=== PATIENT | female | born 2000 | race Caucasian/White ===

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

== ENCOUNTER 2019-01-04 10:08 | Outpatient (RCR) | payer MEDICAID, SELFPAY | END 2019-01-04 23:59 | LOC: NS 10:08 | PROVIDERS: Family Provider Pediatrics; PCP Pediatrics; Visit Provider Pediatrics | DX: E66.01 Morbid (severe) obesity due to excess calories (principal); Z71.3 Dietary counseling and surveillance | CPT/HCPCS: 97803 ==

== ENCOUNTER 2019-02-01 10:00 | Outpatient (RCR) | payer MEDICAID, SELFPAY | END 2019-02-01 23:59 | disposition home or self-care (01) | LOC: NS 10:00 | PROVIDERS: Family Provider Pediatrics; PCP Pediatrics; Visit Provider Pediatrics | DX: Z71.3 Dietary counseling and surveillance (principal); E66.01 Morbid (severe) obesity due to excess calories | CPT/HCPCS: 97803 ==

== ENCOUNTER 2020-07-26 20:08 | Emergency (ER) | payer MEDICAID, SELFPAY ==
[2020-07-26 20:09] VITALS: BP 141/97; PULSE 86; RESP 16; TEMP 35.8; O2SAT 98; BMI 52.9
--- NOTE | 2020-07-26 20:25 | EKG12_ITS ---
Test Reason : CP Blood Pressure : / mmHG Vent. Rate : 079 BPM Atrial Rate : 079 BPM P-R Int : 158 ms QRS Dur : 102 ms QT Int : 396 ms P-R-T Axes : 044 006 037 degrees QTc Int : 454 ms Normal sinus rhythm Normal ECG Confirmed by STEPHANIA SCHAFER, GLADIS ([id number]), staff editor KAMLESH LEOS ([id number]) on 07/29/2020 11:09:38 AM Referred By: VAMSI Confirmed By:GLADIS CAT MD
--- NOTE | 2020-07-26 20:25 | RAD_ITS ---
STUDY: X-RAY CHEST REASON FOR EXAM: Female, 19 years old. CHEST PAIN AND SOB, WORSE ON DEEP INSPIRATION TECHNIQUE: Single frontal view of the chest. COMPARISON: None. FINDINGS: The lungs are clear and expanded. There is no demonstrated pleural abnormality. Normal size heart. Normal mediastinum and sudeep. Normal visualized pulmonary arteries. Normal visualized aortic arch and descending thoracic aorta. Normal visualized thoracic spine. Normal visualized ribs, clavicles, and shoulders. There is no demonstrated abnormality of the visualized soft tissue structures of the upper abdomen. RAD/Chest 1 View (Portable) IMPRESSION: Normal x-ray examination of the chest. Electronically Signed: Felipe Minor MD at 21:01 EST , Service support ,
--- NOTE | 2020-07-26 20:26 | ED.VISSUMM ---
- ER Visit Summary Date of Service: 07/26/20 Chief Complaint: Chest pain History of Present Illness: The patient is a 19 F who presents with chest pain that began today. Patient states her pain waxes and wanes. Patient describes it as sharp and stabbing. Patient states it is over the substernal area and radiates into her back. Patient states it is worse with deep breathing. Patient states nothing seems to help with it. Patient states she does feel short of breath with it. Patient denies any nausea or vomiting. Patient denies any fevers or chills. Patient denies any cough. Patient denies any lightheadedness or dizziness. Patient denies any diaphoresis. Patient denies any cardiac or PE risk factors. Physical Examination: Vital signs are stable. Patient is afebrile. Patient is in no acute distress. Oral mucosa is pink and moist. Neck is supple. Trachea is midline. There is no JVD. Heart was regular rate and rhythm. Lungs are clear and equal bilaterally. Abdomen is soft. Bowel sounds are normal. There is no tenderness. Cranial nerves II through XII are intact. There are no focal motor or sensory deficits noted. Tremors are intact. There is no calf tenderness or edema. Test Results: EKG was obtained. On my interpretation, there is a normal sinus rhythm with a rate of 79. There are no acute ST or T wave changes. Portable 1 view chest x-ray was obtained. On my interpretation, lung landa are clear. There is normal cardiac silhouette. Bony thorax is normal. There is no acute process noted. Radiologist also interpreted the x-ray and agrees. CBC, basic metabolic profile, D-dimer, and troponin were obtained and were all within normal limits. Emergency Department Course and Treatment: Patient is feeling better on reevaluation. Patient has a HEART score of 0. Patient was advised that this is low risk for acute cardiac event. Patient was instructed to follow-up with her primary care physician in 5 to 7 days. Patient was given a prescription for ibuprofen. Patient was instructed to return if worse in any way. Patient understood and was agreeable with the plan. All questions were answered. Disposition: Discharge home Impression: 1. Chest pain of uncertain etiology This note was generated with Loxo On[employer] software. It may contain incorrect words, spelling, and punctuation that were not noted in review of the chart prior to signing ED Disposition - Plan for ED Patient: Disposition: Home or Assisted Living Diagnosis: Chest pain of uncertain etiology Instructions: ED Chest Pain, Uncertain Cause Referrals: Haroon Regan MD [Primary Care Provider] - 5-7 Days
[2020-07-26] MEDS: Ibuprofen 400 MG Tablet 800 MG PO (20:46)
[2020-07-26 20:47] LABS: Absolute Lymphocyte Count 1.32 X10^3/uL (0.83-4.51); Absolute Neutrophil Count 6.5 X10^3/uL (2.0-7.7); Basophil# 0.02 X10^3/uL; Basophil% 0.2 % (0-1); Eosinophil# 0.07 X10^3/uL; Eosinophils% 0.8 % (0-5); Hematocrit 38.2 % (37-47); Hemoglobin 12.1 g/dL (12.0-15.0); Lymphocyte # 1.32 X10^3/ul (4.0); Lymphocyte % 15.5 % (19-41); Mean Corp Hgb Conc 31.7 g/dL (32-36); Mean Corpuscular Hgb 26.1 pg (27.0-32.0); Mean Corpuscular Volume 82.5 fL (81-99); Mean Platelet Vol. 10.2 fl (6.2-12.0); Monocyte# 0.53 X10^3/uL; Monocyte% 6.2 % (0-10); NRBC Flagged by Analyzer 0 % (0-5); Neutrophil # 6.54 X10^3/uL (2.7-7.7); Neutrophil % 76.9 % (47-70); Platelet Count 331 K/mm3 (150-450); RBC Distribution Width CV 13.5 % (11.6-14.6); RBC Distribution Width SD 40.4 fl (35.1-43.9); Red Blood Count 4.63 M/mm3 (4.2-5.4); White Blood Count 8.5 K/mm3 (4.4-11.0)
[2020-07-26 20:56] LABS: D-Dimer Quantitative (DVT/PE) 0.42 FEU/ug/m (0.27-0.49)
[2020-07-26 21:02] LABS: Anion Gap 5 (5-15); BUN 16 mg/dL (7-18); BUN/Creat Ratio 18.5 RATIO (10-20); Calcium,Total 8.5 mg/dL (8.5-10.1); Chloride 109 mmol/L (98-107); Creatinine, Serum 0.87 mg/dL (0.55-1.02); EST Glomerular Filtration Rate 88 mL/min (>60); Est Glom Filt Rate - Afr Amer 106 mL/min (>60); Estimated Creatinine Clearance 92.82 ml/min; Glucose 85 mg/dL (74-106); Potassium 3.9 mmol/L (3.5-5.1); Sodium Level 140 mmol/L (136-145)
[2020-07-26 21:58] VITALS: BP 131/85; PULSE 72; RESP 18; O2SAT 98
== END 2020-07-26 21:59 | disposition home or self-care (01) ==
PROVIDERS: Emergency Provider Emergency Medicine; PCP Pediatrics
DX: R07.89 Other chest pain (principal); R06.00 Dyspnea, unspecified; M54.9 Dorsalgia, unspecified; E66.9 Obesity, unspecified; F32.9 Major depressive disorder, single episode, unspecified; Z79.899 Other long term (current) drug therapy
CPT/HCPCS: 71045; 80048; 84484; 85025; 85379; 93005; 99285

== ENCOUNTER 2022-03-07 10:30 | Outpatient (RCR) | payer OTHER, MEDICAID, SELFPAY ==
--- NOTE | 2022-01-25 11:06 | HP.PTEVAL ---
Patient's Visit Information ELENA HORN is a 21 year old F referred to Physical Therapy by TODD BERRIOS with a diagnosis of Nondisplaced fracture of lateral malleolus of left fibula. Date of Evaluation: 01/25/22 Physical Therapist: Benjy Swanson DPT - Visit Plan Frequency: 2x /Week Duration: 4-6 Weeks Plan: Start with Calf stretching, 4 way ankle strengthening. Progressing to functional strengthening and strengthening for work related acivities. - Subjective Pt. is here today her initial evaluation with diagnosis of Nondisplaced fracture of lateral malleolus of left fibula, initial encounter for closed fracture. Pt. reports hurting her ankle in July when she was at work and slipped. Pt. reports doing much better than she originally did. She reports overall not much pain any more, but does get her every once in a while if she takes a bad step. She is not back to work yet, no RTD know by patient. She is pleased with how she is progressing. 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 She is sleeping well, no N/T noted. Pt. is hopeful to get back to all recreational and work activities without limitations. - Pain L ankle Pain Intensity (Out of 10): 1 Pain Intensity Range: 0, 2 - Objective POSTURE: Pt. has good posture in stance. Normal ankle positioning noted. PALPATION: Pt. had mild tenderness at ATFL, but no pain with rest of palpation. NEURO: normal throughout BLEs. Pt. is able to rise on heels and toes without issues. ROM: L ankle: AROM: 8deg, PF 34deg, INV 10deg, EVR 8deg. PROM: DF 12deg, PF 38deg, INV 14deg, EVR 14deg. Pt. has normal knee and hip ROM. She does have sight calf musculature and L HS. MMT: RLE: 5/5 throughout. LLE: ankle DF 4+/5, PF 5/5, INV 4+/5, EVR 4+/5. Knee: ext 5/5, flexion 5/5; hip: flexion 4+/5, abd 4+/5, ext 4+/5. GAIT: Pt. has fairly normal gait pattern. She reports no increase in symptoms throughout cycle. She does have increased lateral lean during L stance phase to L side. STAIRS: Ascending with 1 HR with normal pattern, slight increase in functional weakness during L loaded phase. Slight early heel off with descending during L loaded phase. - Balance/Special Test Scores Lower Extremity Functional Score: 60 - Goals Goal 1:: LTG: Pt. to be I with HEP for L ankle strengthening and ROM. Goal Time Frame: 4-6 Weeks Goal 2:: STG: Pt. to be able to ambulate 1 mile without increase in symptoms. Goal Time Frame: 2-4 Weeks Goal 3:: LTG: Pt. to be able to stand for 3-4 hours allowing for increased tolerance to work activities. Goal Time Frame: 4-6 Weeks Goal 4:: STG: Pt. to have full symmetrical ROM of L ankle allowing for increased tolerance to functional mobility. Goal Time Frame: 2-4 Weeks Goal 5:: LTG: Pt. to have full strength 5/5 of LLE allowing good tolerance to all work activities. Goal Time Frame: 4-6 Weeks - Rehabilitation Potential Physical Therapy Diagnosis: Pt. has signs and symptoms consistent with Nondisplaced fracture of lateral malleolus of left fibula. Pt. is overall doing pretty well. She has been off work for a while now and some slight weakness in her LLE as well as some slight hypomobility of L ankle. She would benefit from PT to work on LLE strengthening and graded exercises progressing back to all previous levels of work and recreational activities. Rehabilitation Potential: Excellent - Anticipated Interventions Patient/Client Instruction: Educate patient on: Condition, Plan of Care, Risk Factors, Benefits of Fitness Program For the Purpose of:: To facilitate caregiver knowledge, To improve self management, To prevent re-injury, To improve ability to perform tasks related to life management, To improve tolerance to ADL's Therapeutic Exercise to Include: Strength training, Power training, Endurance training, Balance training, Body mechanics, Postural training, Flexibilty training, Gait and locomotor training, Passive ROM, Active ROM For the Purpose of:: To decrease pain, To increase ROM, To improve nutrient delivery to tissue, To increase oxygenation perfusion, To improve muscle performance and motor function, To improve ability to perform ADL's, To increase tolerance to activity/condition/position, To improve gait and locomotor functions, To improve health of tissue, To decrease soft tissue restriction, To increase flexibility/ROM Thank you for the opportunity to evaluate your patient. For Medicare and Medicare HMO plans, please review the plan of care and approve it. It will need to be FAXED BACK to us at [phone] for Medicare purposes. For Medicare only, by signing this I certify the plan of care. Please let me know if there are questions or concerns regarding this plan of care. Physician Signature: Date:
--- NOTE | 2022-03-07 10:59 | HP.PTDCSUM ---
It has been my pleasure to treat ELENA HORN referred by TODD BERRIOS, with the diagnosis of Nondisplaced fracture of lateral malleolus of left fibula for a total of 10 visit(s). Discharge Date: 03/07/22 Please see the following information for a summary of their discharge status. Subjective: Pt. reports no pain today. She reports doing well over all. She reports being able to complete all ADLs, and her foot/ankle is not effecting her in her activity any more. return to doctor on 03/16/22. She is returning to school in a few weeks. Pt. reports being 90% better overall. A little bit of an issues with carrying objects down stairs, but other kim no issues. L ankle Pain Intensity (Out of 10): 0 % Improvement: 90 Objective/Function: ROM: L ankle DF 14deg, PF 48deg, INV 20deg, EVR 18deg. active motion. MMT: 5/5 throughout L ankle and knee musculature. GAIT: Pt. has normal gait pattern. Slight increase in lateral sway with her hips, but is most likely baseline. Pt. reports no pain with walking. No antalgic pattern noted. STAIRS: Pt. is able to complete with normal reciprocal pattern without use of HR without pain. No early heel off with descending. 6 MWT: 1401 feet no pain. She reports being able to walk upto ~1 mile without issues, but has has not formally measured out. She is standing and doing all of her activities without issues or limitations at this point in time. No pain noted with palpation. PT. is HEP compliant. Goal 1:: LTG: Pt. to be I with HEP for L ankle strengthening and ROM. Goal Progress: Goal Met Goal 2:: STG: Pt. to be able to ambulate 1 mile without increase in symptoms. Goal Progress: Goal Met Goal 3:: LTG: Pt. to be able to stand for 3-4 hours allowing for increased tolerance to work activities. Goal Progress: Goal Met Goal 4:: STG: Pt. to have full symmetrical ROM of L ankle allowing for increased tolerance to functional mobility. Goal Progress: Goal Met Goal 5:: LTG: Pt. to have full strength 5/5 of LLE allowing good tolerance to all work activities. Goal Progress: Goal Met Plan: PT to be DC to HEP at this point in time. She is to follow up with physician in ~10 days. Discharge Comments: Pt. was treated with strengthening, gait, proprioception exercises in PT. She has progressed very well and reports being close to normal when it comes to her L ankle/foot. She has progressed as expected and will be DC from PT at this point in time. If there are questions or concerns regarding this patient's physical therapy, please feel free to call me at [phone]. Thank you for the referral of this patient. Sincerely, Benjy Swanson, DPT Balance/Gait/Functional tests - Balance/Special Test Scores Lower Extremity Functional Score: 77
== END 2022-03-07 19:00 | disposition home or self-care (01) ==
LOC: PT 10:30
PROVIDERS: PCP Pediatrics
DX: S82.65XD Nondisplaced fracture of lateral malleolus of left fibula, subsequent encounter for closed fracture with routine healing (principal); X58.XXXD Exposure to other specified factors, subsequent encounter
CPT/HCPCS: 97110; 97161; 97164

== ENCOUNTER → 2024-03-25 | Outpatient (CLI) | payer MEDICAID, SELFPAY ==
[2024-03-27 20:08] LABS: QNTFERON TB Mitogen Value > 10.00 IU/mL (.); QNTFERON TB Nil Value 0 IU/mL (.); QNTFERON TB1+ Ag Value 0 IU/mL (.); QNTFERON TB2+ Ag Value 0 IU/mL (.); QNTIFERON TB Positive Criteria Negative (Negative)
== END | disposition home or self-care (01) ==
LOC: MTLAB 12:41
PROVIDERS: PCP Pediatrics; Referring Provider Physician Assistant; Visit Provider Physician Assistant
DX: Z02.1 Encounter for pre-employment examination (principal)
CPT/HCPCS: 36415; 86480

== ENCOUNTER 2024-07-16 17:40 | Emergency (ER) | payer MEDICAID, SELFPAY ==
[2024-07-16 17:43] VITALS: BP 138/82; PULSE 68; RESP 18; TEMP 36.1; O2SAT 98; BMI 57.6
--- NOTE | 2024-07-16 18:47 | CT_ITS ---
STUDY: CT CERVICAL SPINE WITHOUT CONTRAST REASON FOR EXAM: Female, 23 years old. neck pain RADIATION DOSAGE (If Supplied By Facility): CTDIvol = ( 30.32 ) mGy, DLP = ( 581.11 ) mGycm TECHNIQUE: High resolution transaxial imaging was performed without contrast material. Sagittal and coronal images were reconstructed. Individualized dose optimization techniques were used for this CT. The protocol utilizes one or more of the following dose reduction techniques: automated exposure control, adjustment of mA and/or kV according to patient size,and/or use of iterative reconstruction technique. COMPARISON: None FINDINGS: Normal craniovertebral junction. Normal anterior atlantoaxial articulation. Normal odontoid process. Normal cervical lordosis. Normal vertebral bodies and posterior osseous elements. C2-3: Normal endplates. Normal disc height and morphology. Normal central canal and intervertebral neuroforamina. C3-4: Normal endplates. Normal disc height and morphology. Normal central canal and intervertebral neuroforamina. C4-5: Normal endplates. Normal disc height and morphology. Normal central canal and intervertebral neuroforamina. C5-6: Normal endplates. Normal disc height and morphology. Normal central canal and intervertebral neuroforamina. C6-7: Normal endplates. Normal disc height and morphology. Normal central canal and intervertebral neuroforamina. C7-T1: Normal endplates. Normal disc height and morphology. Normal central canal and intervertebral neuroforamina. Normal visualized soft tissue structures. CT/Spine Cervical without Contras IMPRESSION: Normal unenhanced CT examination of the cervical spine. Electronically Signed: Felipe Minor MD at 21:21 EST ,
--- NOTE | 2024-07-16 18:47 | EKG12_ITS ---
Test Reason : DYSRHYTHMIA Blood Pressure : */* mmHG Vent. Rate : 62 BPM Atrial Rate : 62 BPM P-R Int : 158 ms QRS Dur : 102 ms QT Int : 420 ms P-R-T Axes : 31 6 24 degrees QTcB Int : 426 ms Normal sinus rhythm Cannot rule out Anterior infarct , age undetermined Abnormal ECG Confirmed by FCO SCHAFER, ROXANNE ([id number]), editor producer AMELIA ZAIDI ([id number]) on 07/17/2024 11:38:04 AM Referred By: Confirmed By: ROXANNE EAGLE MD
--- NOTE | 2024-07-16 18:47 | CT_ITS ---
STUDY: CT THORACIC SPINE WITHOUT CONTRAST REASON FOR EXAM: Female, 23 years old. back pain RADIATION DOSAGE (If Supplied By Facility): CTDIvol = ( 55.04 ) mGy, DLP = ( 2039.32 ) mGycm TECHNIQUE: The patient was scanned in a multi detector CT scanner. High resolution imaging was performed. Images were obtained from cervical to lumbar spine. Sagittal and coronal images were reconstructed. Individualized dose optimization techniques were used for this CT. The protocol utilizes one or more of the following dose reduction techniques: automated exposure control, adjustment of mA and/or kV according to patient size,and/or use of iterative reconstruction technique. COMPARISON: None. FINDINGS: Normal visualized cervical spine. Multiple intraosseous hemangiomas. Normal kyphosis of the thoracic spine. There is no substantial scoliosis. Normal thoracic vertebrae and endplates. Normal disc spaces heights. The soft tissue structures are unremarkable. CT/Spine Thoracic without Contras IMPRESSION: No fracture. 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 There is risk of pathologic fracture. Electronically Signed: Felipe Minor MD at 21:28 EST ,
--- NOTE | 2024-07-16 18:48 | EDS_ITS ---
HPI History of Present Illness Chief Complaint: Other, Pain/Inj Detail of Chief Complaint: Neck and back pain and near syncope Informant: patient Narrative Narrative: Patient presents the emergency department with an odd discomfort lower neck posteriorly and upper back that then sends a wave of nausea through her and then she feels like she can pass out. Patient states has been going on for about 3 days. She has not actually passed out. She does have remote history of vasovagal syncope. She denies recent illness. She denies chest pain. She denies shortness of breath. Today she was at work and felt like she might pass out became very concerned. They went to urgent care and was referred to the emergency department. [facility] Medical History (Updated 07/16/24 @ 21:[address] Rosalia Dawson, DO) Anxiety Depressed Home Medications ?Medication ?Instructions ?Recorded ?Last Taken ?Type bupropion HCl 300 mg 24 hr tablet, 300 mg PO DAILY 07/26/20 Unknown History extended release fluoxetine 20 mg capsule 80 mg PO DAILY 07/26/20 Unknown History ondansetron 4 mg disintegrating 4 mg PO Q8H PRN PRN Nausea #10 tabs 07/16/24 Unknown Rx tablet Allergy/AdvReac Type Severity Reaction Status Date / Time No Known Allergies Allergy Verified 07/16/24 17:43 Social History Smoking Status: Never smoker ROS ROS ED Review of Systems ROS Unobtainable: other Constitutional Constitutional ED: Reports lethargy; Denies chills, fever(s), sweats or weight loss Eyes Eyes: Denies blurry vision, change in vision or diplopia ENT ENT ED: Denies rhinorrhea or sore throat Cardiovascular Cardiovascular: Denies chest pain, orthopnea or racing heartbeat Respiratory/Chest Respiratory/Chest: Denies cough, dyspnea, dyspnea on exertion, orthopnea or sputum Gastrointestinal Gastrointestinal: Reports nausea; Denies abdominal pain, diarrhea or vomiting Genitourinary Genitourinary ED: Denies dysuria, hematuria or urinary frequency Musculoskeletal Musculoskeletal: Reports back pain and neck pain; Denies arthralgias or myalgias Integumentary Denies abscess, Abrasions or rash Neurologic Neurologic: Reports other Details: Near syncope ; Denies headache(s) or weakness Psychiatric Psychiatric: Denies anxiety, depression or suicidal thoughts Endocrine Endocrinology: Denies polydipsia, polyphagia or polyuria Hematologic/Lymphatic Hematologic/Lymphatic: Denies easy bleeding, easy bruising or lymphadenopathy Allergic/Immunologic Allergic/Immunologic ED: Denies mouth swelling, tongue swelling or urticaria EXAM Physical Exam Const Vital Signs: 07/16/24 17:43 07/16/24 19:02 07/16/24 19:42 Temperature 96.9 F L Temperature Source Temporal Pulse Rate 68 70 Respiratory Rate 18 16 Respiratory Effort Normal Respiratory Pattern Normal Blood Pressure 138/82 H 132/98 H Blood Pressure Mean 100 109 Pulse Ox 98 95 Oxygen Delivery Method Room Air Positive well nourished and well developed General Appearance ED: well developed and NAD HEENT Reports TM's clear and moist mucous membranes normocephalic and atraumatic; Negative for trauma or tenderness Tympanic Membrane ED: Yes TM's clear Eyes PERRL and EOMs intact bilaterally General Eye ED: Negative for pale conjunctiva or scleral icterus Neck no lymphadenopathy, supple and no JVD General: Negative for tenderness Chest Wall inspection of chest normal and palpation of chest normal Chest: Negative for tenderness Resp normal respiratory effort and clear to auscultation bilaterally Effort and Inspection: Negative for respiratory distress or pain with movement Auscultation: Negative for rhonchi, wheezes or diminished lung sounds Cardio regular rate, regular rhythm, S1 normal heart sound, S2 normal heart sound and no murmurs Peripheral Pulses: pulses 2+ throughout GI normal to inspection, nondistended, normoactive bowel sounds, soft to palpation, non-tender, non-distended and no masses Back/Spine no CVA tenderness and no thoracic nor lumbar tenderness Extremity normal to inspection General Extremety ED: Negative for edema General Extremity: Negative for edema Neuro oriented x3, CN's II-XII intact bilaterally, no sensory deficits noted and gait normal Sensorium / Orientation: awake, alert, oriented to person, oriented to place and oriented to time Motor Exam: strength 5/5 throughout and strength abnormal Psych mental status grossly normal Skin no rashes or lesions noted and no wounds MDM MDM MDM Narrative Medical decision making narrative: Patient presents to the emergency department with concern for near syncopal type feelings and some unusual discomfort in her upper back and base of her neck. She feels like that is the source of this feeling or sensation neck and then causes nausea makes her feel like she is in a pass out. Patient's had no falls or injuries. She denies recent illness. IV line established. EKG obtained showed sinus rhythm with ventricular rate of 62 bpm with no acute ST segment changes. CBC with differential obtained showed a white count of 7.6 with hemoglobin 12.2 and platelet count of 316. Chemistries unremarkable. Patient had a CT scan of the cervical spine that was normal. 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 There is risk of pathologic fracture. These findings are incidental. I do not feel they have any bearing on patient's symptomatology. I will refer them to a back specialist for follow-up. I will write patient a prescription for some Zofran. Advised to push fluids. Follow-up with primary care physician within next 5 to 7 days Lab Data Attestation: I reviewed the patient's lab results. Labs: Laboratory Results - last 24 hr 07/16/24 18:52 WBC 7.6 RBC 4.59 Hgb 12.2 Hct 38.1 MCV 83.0 MCH 26.6 L MCHC 32.0 RDW Std Deviation 39.8 RDW Coeff of Luiz 13.2 Plt Count 316 MPV 10.1 Immature Gran % (Auto) 0.300 Neut % (Auto) 73.8 H Lymph % (Auto) 18.8 L [place] % (Auto) 5.8 Eos % (Auto) 0.9 Baso % (Auto) 0.4 Absolute Neuts (auto) 5.6 Absolute Lymphs (auto) 1.43 Nucleated RBC % 0 Sodium 140 Potassium 4.0 Chloride 110 H Carbon Dioxide 28.0 Anion Gap 3 L BUN 18 Creatinine 0.82 Estim Creat Clear Calc 163.62 Est GFR (MDRD) Af Amer 109 Est GFR (MDRD) Non-Af 90 BUN/Creatinine Ratio 21.8 H Glucose 89 Calcium 9.0 Radiography Diagnostic Testing: Clinical Impression(s) from Imaging Studies Cervical Spine CT 07/16/24 18:47 IMPRESSION: Normal unenhanced CT examination of the cervical spine. Electronically Signed: Felipe Minor MD at 21:21 EST , Thoracic Spine CT 07/16/24 18:47 IMPRESSION: No fracture. 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 There is risk of pathologic fracture. Electronically Signed: Felipe Minor MD at 21:28 EST , EKG Initial EKG: Attestation: I personally reviewed and interpreted this EKG as follows: Comments: Sinus rhythm with ventricular rate of 62 bpm with no acute ST segment changes Discharge Plan Triage Chief Complaint: Other, Pain/Inj Other Complaint: Nausea/Vomiting ED Provider: Rosalia Dawson Dx/Rx/DC Orders Clinical Impression: Back pain, Near syncope, Nausea Instructions: ED Back Pain (Acute or Chronic), ED Near-Fainting, Uncertain Cause Prescriptions: New ondansetron 4 mg tablet,disintegrating 4 mg PO Q8H PRN PRN (Reason: Nausea) Qty: 10 0RF No Action fluoxetine 20 MG capsule 80 mg PO DAILY bupropion HCl 300 MG tablet extended release 24 hr 300 mg PO DAILY Primary Care Provider: Daniele Solo Referrals: Daniele Solo MD [Primary Care Provider] - 5-7 Days Print Language: Korean Disposition Disposition: Home, Self Care
[2024-07-16 19:05] LABS: Absolute Lymphocyte Count 1.43 X10^3/uL (0.83-4.51); Absolute Neutrophil Count 5.6 X10^3/uL (2.0-7.7); Basophil# 0.03 X10^3/uL; Basophil% 0.4 % (0-1); Eosinophil# 0.07 X10^3/uL; Eosinophils% 0.9 % (0-5); Hematocrit 38.1 % (37-47); Hemoglobin 12.2 g/dL (12.0-15.0); Lymphocyte # 1.43 X10^3/ul (0.83-4.51); Lymphocyte % 18.8 % (19-41); Mean Corpuscular Hgb 26.6 pg (27.0-32.0); Mean Platelet Vol. 10.1 fl (6.2-12.0); Monocyte# 0.44 X10^3/uL; Monocyte% 5.8 % (0-10); NRBC Flagged by Analyzer 0 % (0-5); Neutrophil # 5.63 X10^3/uL (2.7-7.7); Neutrophil % 73.8 % (47-70); Platelet Count 316 K/mm3 (150-450); RBC Distribution Width CV 13.2 % (11.6-14.6); RBC Distribution Width SD 39.8 fl (35.1-43.9); Red Blood Count 4.59 M/mm3 (4.2-5.4); White Blood Count 7.6 K/mm3 (4.4-11.0)
[2024-07-16 19:23] LABS: Anion Gap 3 (5-15); BUN 18 mg/dL (7-18); BUN/Creat Ratio 21.8 RATIO (10-20); Chloride 110 mmol/L (98-107); Creatinine, Serum 0.82 mg/dL (0.55-1.02); EST Glomerular Filtration Rate 90 mL/min (>60); Est Glom Filt Rate - Afr Amer 109 mL/min (>60); Estimated Creatinine Clearance 163.62 ml/min; Glucose 89 mg/dL (74-106); Sodium Level 140 mmol/L (136-145)
[2024-07-16 19:42] VITALS: BP 132/98; PULSE 70; RESP 16; O2SAT 95
[2024-07-16 22:08] VITALS: BP 128/74; PULSE 71; RESP 16; TEMP 36.1; O2SAT 99
== END 2024-07-16 22:09 | disposition home or self-care (01) ==
PROVIDERS: Emergency Provider Emergency Medicine; PCP Internal Medicine; Visit Provider Emergency Medicine
DX: M54.9 Dorsalgia, unspecified (principal); R11.2 Nausea with vomiting, unspecified; R55 Syncope and collapse; F41.9 Anxiety disorder, unspecified; F32.A Depression, unspecified; Z79.899 Other long term (current) drug therapy
CPT/HCPCS: 72125; 72128; 80048; 85025; 93005; 99284; A4216